=== PATIENT | female | born 1945 | race Caucasian/White ===

== ENCOUNTER → 2016-12-17 | Outpatient (CLI) | payer OTHER ==
[~2016-12-17] MED LIST: CENTRUM SILVER1 EAC4 PO; HYDROCODONE-AP1 EAC6 PO; METFORMIN HCL500 MG PO; NEXIUM40 MG PO; SENNA S TABLET1 EACH PO; TURMERIC1 GM PO; ZESTORETIC 20-1 EAC3 PO
== END ==
LOC: RAD 08:11
DX: C50.911 Malignant neoplasm of unspecified site of right female breast (principal)